=== PATIENT | female | born 1960 | race Caucasian/White ===

== ENCOUNTER 2019-06-05 10:04 | Outpatient (CLI) | payer BC ==
[2019-06-05 11:37] LABS: ALANINE AMINOTRANSFERASE 31 U/L (12-78); ALBUMIN 3.8 g/dL (3.4-5.0); ANION GAP 6 mmol/L (5-15); CALCIUM 8.8 mg/dL (8.5-10.1); CHLORIDE 108 mmol/L (98-107); CREATININE 0.65 mg/dL (0.55-1.02)
[2019-06-05] MEDS ORDERED: INSU100I13 SQ (11:38)
[2019-06-05] MEDS ORDERED: LEVO75TA5 PO (11:38)
[2019-06-05] MEDS ORDERED: METF500T17 PO (11:38)
[2019-06-05] MEDS ORDERED: LISI2.5T PO (11:38)
[2019-06-05] MEDS ORDERED: GABA800T5 PO (11:38)
[2019-06-05] MEDS ORDERED: HYDR200T72 PO (11:38)
[2019-06-05] MEDS ORDERED: ADAL40PE7 SQ (11:38)
[2019-06-05] MEDS ORDERED: ATOR20TA37 PO (11:38)
[2019-06-05 11:40] LABS: ALKALINE PHOSPHATASE 87 U/L (45-117); TOTAL PROTEIN 7.1 g/dL (6.4-8.2)
== END 2019-06-05 23:59 | disposition home or self-care (01) ==
LOC: STAR 10:04
PROVIDERS: ATTEND Orthopaedic Surgery
DX: Z01.818 Encounter for other preprocedural examination (principal); S83.422A Sprain of lateral collateral ligament of left knee, initial encounter; S83.222D Peripheral tear of medial meniscus, current injury, left knee, subsequent encounter; X58.XXXA Exposure to other specified factors, initial encounter; X58.XXXD Exposure to other specified factors, subsequent encounter; Y93.89 Activity, other specified; Y92.89 Other specified places as the place of occurrence of the external cause; Y99.8 Other external cause status
CPT/HCPCS: 36415; 80053; 93005